=== PATIENT | female | born 1995 | race Caucasian/White ===

== ENCOUNTER 2018-05-17 14:36 | Emergency (ER) | payer OTHER ==
[~2018-05-17 14:36] MED LIST: Sodium Chloride 0.9% 1000 ML 1,000 ML ONE
[2018-05-17] MEDS ORDERED: FEVERALL 650 MG PR STA (14:42)
[2018-05-17] MEDS ORDERED: Sodium Chloride 0.9% 1000 ML 1,000 ML IV STA ×2 (14:42→15:29)
[2018-05-17 14:52] LABS: A-aADO2 61; ABG HEMOGLOBIN 11.2; ABG POTASSIUM 3.4 (3.5-5.1); ABG SITE RIGHT BRACHIAL; ARTERIAL BLOOD GAS BASE EXCESS -5.2 (-2.0-2.0); ARTERIAL BLOOD GAS FIO2 28 %; ARTERIAL BLOOD GAS PCO2 26 mmHg (35-45); ARTERIAL BLOOD GAS PO2 106 mmHg (75-100); ARTERIAL BLOOD GAS pH 7.44 (7.35-7.45); CARBOXYHEMOGLOBIN 2.4 % THgb (0.0-6.9); HCO3- 17.7 (22-28); HGB O2 SAT 94.6 g/dF (94-100); paO2 pAO1 0.63
[2018-05-17] MEDS ORDERED: FEVERALL 650 MG ONE ×2 (14:52→15:01)
--- NOTE | 2018-05-17 14:52 | ERPHSYRPT ---
- History of Present Illness Time Seen by Provider: 05/17/18 14:40 Historian: patient Exam Limitations: clinical condition Physician History: PATIENT WITH A HISTORY OF OPIATE SUBSTANCE ABUSE COMPLAINS OF FREQUENT EPISODES OF EMESIS X 10 EPISODES DAILY FOR 3 DAYS ASSOCIATED WITH ABDOMINAL PAIN, FEVER, HEADACHE, NECK AND BACK PAIN. DENIES BLURRED VISION, DIARRHEA COUGH OR DIFFICULTY BREATHING. PATIENT HAS BEEN UNABLE TO KEEP DOWN HER SUBLOXONE FOR 2 DAYS DUE TO VOMITING. Timing/Duration: day(s) Activities at Onset: none Quality: sharpness, throbbing Abdominal Pain Onset Location: generalized abdomen Pain Radiation: no radiation Severity of Pain-Max: severe Severity of Pain-Current: severe Modifying Factors: Improves With: nothing Associated Symptoms: back, nausea, neck pain Previous symptoms: no prior history Allergies/Adverse Reactions: No Known Drug Allergies Allergy (Verified 05/17/18 15:05) Home Medications: Buprenorphine HCl/Naloxone HCl [Buprenorphin-Naloxon 8-2 mg Sl] 1 tab PO BID 06/30 [History] - Review of Systems Constitutional: Fever Eyes: No Symptoms Ears, Nose, & Throat: No Symptoms Respiratory: No Symptoms, No Cough, No Dyspnea Cardiac: No Symptoms, No Chest Pain, No Edema, No Syncope Abdominal/Gastrointestinal: Abdominal Pain, Nausea, Vomiting, No Diarrhea Genitourinary Symptoms: No Symptoms, No Dysuria Musculoskeletal: Arthralgias, No Back Pain, No Neck Pain Skin: No Rash Neurological: No Dizziness, No Focal Weakness, No Sensory Changes Psychological: No Symptoms Endocrine: No Symptoms All Other Systems: Reviewed and Negative - Female History Hx Now: (UNKNOW) - Nursing Vital Signs Nursing Vital Signs: Initial Vital Signs Temperature 103.6 F 05/17/18 14:40 Pulse Rate 119 H 05/17/18 14:40 Blood Pressure 106/64 05/17/18 14:40 O2 Sat by Pulse Oximetry 100 05/17/18 14:40 Pain Scale Pain Intensity 10 - Physical Exam General Appearance: moderate distress, other (ALERT AND ORIENTED X 3) Eye Exam: PERRL/EOMI Ears, Nose, Throat Exam: normal ENT inspection, moist mucous membranes Neck Exam: normal inspection, meningismus, Brudzinski, midline tenderness Respiratory Exam: normal breath sounds Cardiovascular Exam: regular rate/rhythm, normal heart sounds, tachycardia Gastrointestinal/Abdomen Exam: soft, normal bowel sounds, tenderness (BILATERAL LOWER QUAD TENDERNESS, SUPRAPUBIC TENDERNESS) Back Exam: normal inspection, CVA tenderness (BILATERAL CVA TENDERNESS) Extremity Exam: normal inspection Neurologic Exam: oriented x 3, other (APPEARS LETHARGIC, ANSWERS APPROPRIATELY) Skin Exam: normal color SpO2 Interpretation: normal SpO2: 99 O2 Delivery: Room Air - Course EKG Interpreted by Me: RATE, Sinus Rhythm, Sinus Tach, NORMAL AXIS - Radiology Exams Chest X-ray Interpretation: Interpreted by me, Negative, No Infiltrates - CT Exams Head CT Interpretation: Tele-radiologist Report, No/Intracranial Hemorrhag Abdomen/Pelvis CT Interpretation: Tele-radiologist Report (SMALL ASCITES WITH MINIMAL PERIPORTAL LYNETTE IS NONSPECIFIC) Ordered Tests: Active Orders 24 hr Category Date Time Status Cath for Specimen-Straight STAT Care 05/17/18 14:45 Active Catheter-Paris Crowley STAT Care 05/17/18 14:42 Active EKG-ER Only STAT Care 05/17/18 14:42 Active IV Insertion STAT Care 05/17/18 14:42 Active ABDOMEN AND PELVIS W CONTRAST [CT] Stat Exams 05/17/18 14:44 Completed CHEST 1 VIEW (PORTABLE) Stat Exams 05/17/18 14:43 Completed HEAD WITHOUT CONTRAST [CT] Stat Exams 05/17/18 14:47 Completed ABG [ARTERIAL BLOOD GASES] Stat Lab 05/17/18 14:51 Completed AMYLASE Stat Lab 05/17/18 14:35 Completed BLOOD CULTURE Stat Lab 05/17/18 14:50 Received BMP Stat Lab 05/17/18 17:05 Completed CBC W DIFF Stat Lab 05/17/18 14:35 Completed CMP Stat Lab 05/17/18 14:35 Completed CSF GLUCOSE Stat Lab 05/17/18 17:45 Completed CSF PROTEIN Stat Lab 05/17/18 17:45 Completed CSF, CELL COUNT Stat Lab 05/17/18 17:45 Completed CULTURE,CSF Stat Lab 05/17/18 17:45 Received CULTURE,URINE Stat Lab 05/17/18 14:55 Received HCG,QUALITATIVE URINE Stat Lab 05/17/18 14:55 Completed LIPASE Stat Lab 05/17/18 14:35 Completed Lactic Acid Stat Lab 05/17/18 14:42 Completed Lactic Acid Stat Lab 05/17/18 16:50 Completed Lactic Acid Stat Lab 05/17/18 19:07 Ordered Manual Differential NC Stat Lab 05/17/18 14:35 Completed TROPONIN Q3H Lab 05/17/18 14:35 Completed TROPONIN Q3H Lab 05/17/18 17:30 Completed TROPONIN Q3H Lab 05/17/18 23:45 Ordered UA W/RFX UR CULTURE Stat Lab 05/17/18 14:55 Completed Urine Triage Profile Stat Lab 05/17/18 14:55 Completed Medication Summary Discontinued Medications Generic Name Dose Route Start Last Admin Trade Name Savanah PRN Reason Stop Dose Admin Acetaminophen 650 mg 05/17/18 14:42 05/17/18 14:55 Feverall 650 Mg MS 05/17/18 14:43 650 mg STAT STA Administration Acetaminophen Confirm 05/17/18 14:52 Feverall 650 Mg Administered 05/17/18 14:53 Dose 650 mg .ROUTE .STK-MED ONE Acetaminophen Confirm 05/17/18 15:01 Feverall 650 Mg Administered 05/17/18 15:02 Dose 650 mg .ROUTE .STK-MED ONE Acetaminophen 650 mg 05/17/18 17:36 05/17/18 17:38 Tylenol 325 Mg PO 05/17/18 17:37 650 mg STAT STA Administration Acetaminophen Confirm 05/17/18 17:38 Tylenol 325 Mg Administered 05/17/18 17:39 Dose 650 mg .ROUTE .STK-MED ONE Fentanyl Citrate 50 mcg 05/17/18 17:37 05/17/18 18:37 Sublimaze 100 Mcg/2 Ml IV 05/17/18 17:38 Not Given STAT ONE Hydromorphone HCl 1 mg 05/17/18 15:24 05/17/18 15:28 Hydromorphone 1 Mg/Ml Ampule IV 05/17/18 15:25 1 mg STAT ONE Administration Hydromorphone HCl Confirm 05/17/18 15:26 Hydromorphone 1 Mg/Ml Ampule Administered 05/17/18 15:27 Dose 1 mg .ROUTE .STK-MED ONE Sodium Chloride 1,000 mls @ 999 mls/hr 05/17/18 14:42 05/17/18 15:12 Sodium Chloride 0.9% 1000 Ml IV 05/17/18 15:42 Infused .Q1H1M STA Infusion Sodium Chloride Confirm 05/17/18 15:01 Sodium Chloride 0.9% 1000 Ml Administered 05/17/18 15:02 Dose 1,000 mls @ ud .ROUTE .STK-MED ONE Sodium Chloride 1,000 mls @ 999 mls/hr 05/17/18 15:29 05/17/18 15:32 Sodium Chloride 0.9% 1000 Ml IV 05/17/18 16:29 Infused .Q1H1M STA Infusion Ceftriaxone Sodium/Dextrose 2 g in 50 mls @ 100 mls/hr 05/17/18 15:31 17:37 Rocephin 2 Gm-D5w 50ml Bag IV 05/17/18 16:00 Infused STAT STA Infusion Sodium Chloride Confirm 05/17/18 15:28 Sodium Chloride 0.9% 1000 Ml Administered 05/17/18 15:29 Dose 1,000 mls @ ud .ROUTE .STK-MED ONE Ceftriaxone Sodium/Dextrose Confirm 05/17/18 15:35 Rocephin 1 Gm-D5w 50 Ml Bag Administered 05/17/18 15:36 Dose 1 g in 50 mls @ ud IV .STK-MED ONE Ceftriaxone Sodium/Dextrose Confirm 05/17/18 16:19 Rocephin 1 Gm-D5w 50 Ml Bag Administered 05/17/18 16:20 Dose 1 g in 50 mls @ ud IV .STK-MED ONE Sodium Chloride Confirm 05/17/18 17:08 Sodium Chloride 0.9% 1000 Ml Administered 05/17/18 17:09 Dose 1,000 mls @ ud .ROUTE .STK-MED ONE Norepinephrine 4,000 mcg/ 504 mls @ 7.56 mls/hr 05/17/18 17:54 05/17/18 18:05 Dextrose IV 06/16/18 17:53 1 mcg/min .Q24H PRN 7.56 mls/hr SEVERE HYPOTENSION Administration Protocol 1 MCG/MIN Sodium Chloride 1,000 mls @ 100 mls/hr 05/17/18 18:15 05/17/18 18:10 Sodium Chloride 0.9% 1000 Ml IV 06/16/18 18:14 100 mls/hr .Q10H MELISSA Administration Sodium Chloride Confirm 05/17/18 18:09 Sodium Chloride 0.9% 1000 Ml Administered 05/17/18 18:10 Dose 1,000 mls @ ud .ROUTE .STK-MED ONE Ibuprofen 600 mg 05/17/18 16:01 05/17/18 16:15 Motrin 600 Mg PO 05/17/18 16:02 600 mg STAT ONE Administration Ibuprofen Confirm 05/17/18 16:08 Motrin 600 Mg Administered 05/17/18 16:09 Dose 600 mg .ROUTE .STK-MED ONE Lidocaine HCl Confirm 05/17/18 17:18 Xylocaine 2% Hcl 20 Ml Mdv Administered 05/17/18 17:19 Dose 1 ml .ROUTE .STK-MED ONE Lab/Rad Data: Laboratory Result Diagrams 05/17/18 14:35 05/17/18 17:05 Laboratory Results 05/17/18 05/17/18 05/17/18 Range/Units 17:45 17:45 17:30 WBC (4.0-10.5) K/mm3 RBC (4.1-5.4) M/mm3 Hgb (12.0-16.0) gm/dl Hct (35-47) % MCV (78-100) fl MCH (26-32) pg MCHC (32-36) g/dl RDW (11.5-14.0) % Plt Count (150-450) K/mm3 MPV (6-9.5) fl Segmented Neutrophils (36.0-66.0) % Band Neutrophils (0.0-2.0) % Lymphocytes (Manual) (24-44) % Monocytes (Manual) (0.0-12.0) % Eosinophils (Manual) (0.00-3.0) % Metamyelocytes % Platelet Estimate (NORMAL) RBC Morphology Poikilocytosis Anisocytosis Schistocytes Puncture Site pCO2 (35-45) mmHg pO2 (75-100) mmHg Base Excess (-2.0-2.0) O2 Saturation (94-100) g/dF ABG pH (7.35-7.45) ABG HCO3 (22-28) ABG O2 Sat (Measured) (95-100) % [place] Test A-a Gradient a/A Ratio Hemoglobin Carboxyhemoglobin (0.0-6.9) % THgb Methemoglobin (1.4-1.5) % Temperature C POC O2 Flow Rate % Sodium (137-145) mmol/L Potassium (3.5-5.1) mmol/L Chloride (98-107) mmol/L Carbon Dioxide (22-30) mmol/L Anion Gap (5-15) MEQ/L BUN (7-17) mg/dL Creatinine (0.52-1.04) mg/dL Estimated GFR ML/MIN Glucose (74-106) mg/dL Lactic Acid (0.4-2.0) Calcium (8.4-10.2) mg/dL Total Bilirubin (0.2-1.3) mg/dL AST (14-36) U/L ALT (0-35) U/L Alkaline Phosphatase (38-126) U/L Troponin I < 0.012 (0.000-0.034) ng/mL Serum Total Protein (6.3-8.2) g/dL Albumin (3.5-5.0) g/dL Amylase (30-110) U/L Lipase (23-300) U/L Urine Color (YELLOW) Urine Appearance (CLEAR) Urine pH (5-6) Ur Specific [place] (1.005-1.025) Urine Protein (Negative) Urine Ketones (NEGATIVE) Urine Blood (0-5) Stanley/ul Urine Nitrite (NEGATIVE) Urine Bilirubin (NEGATIVE) Urine Urobilinogen (0-1) mg/dL Ur Leukocyte Esterase (NEGATIVE) Urine WBC (Auto) (0-5) /HPF Urine RBC (Auto) (0-2) /HPF U Epithel Cells (Auto) (FEW) /HPF Urine Bacteria (Auto) (NEGATIVE) /HPF Urine Culture Reflexed (NO) Urine Glucose (NEGATIVE) mg/dL Urine HCG, Qual (Negative) CSF Color COLORLESS CSF Clarity CLEAR CSF WBC 2 (0-6) CU. MM CSF RBC 1 (0-2) CU. MM CSF Protein (2) 29 (12-60) mg/dL CSF Neutrophils Cancelled CSF Lymphocytes Cancelled CSF Monocytes Cancelled CSF Glucose 67 (40-70) mg/dL Urine Opiates Level (NEGATIVE) Ur Methadone (NEGATIVE) Urine Barbiturates (NEGATIVE) Ur Phencyclidine (PCP) (NEGATIVE) Urine Amphetamine (NEGATIVE) U Benzodiazepine Level (NEGATIVE) Urine Cocaine (NEGATIVE) Urine Marijuana (THC) (NEGATIVE) Influenza Type A Ag (NEGATIVE) Influenza Type B Ag (NEGATIVE) RSV (PCR) (Negative) Group A Strep Antibody (NEGATIVE) 05/17/18 05/17/18 05/17/18 Range/Units 17:05 16:50 15:20 WBC (4.0-10.5) K/mm3 RBC (4.1-5.4) M/mm3 Hgb (12.0-16.0) gm/dl Hct (35-47) % MCV (78-100) fl MCH (26-32) pg MCHC (32-36) g/dl RDW (11.5-14.0) % Plt Count (150-450) K/mm3 MPV (6-9.5) fl Segmented Neutrophils (36.0-66.0) % Band Neutrophils (0.0-2.0) % Lymphocytes (Manual) (24-44) % Monocytes (Manual) (0.0-12.0) % Eosinophils (Manual) (0.00-3.0) % Metamyelocytes % Platelet Estimate (NORMAL) RBC Morphology Poikilocytosis Anisocytosis Schistocytes Puncture Site pCO2 (35-45) mmHg pO2 (75-100) mmHg Base Excess (-2.0-2.0) O2 Saturation (94-100) g/dF ABG pH (7.35-7.45) ABG HCO3 (22-28) ABG O2 Sat (Measured) (95-100) % [place] Test A-a Gradient a/A Ratio Hemoglobin Carboxyhemoglobin (0.0-6.9) % THgb Methemoglobin (1.4-1.5) % Temperature C POC O2 Flow Rate % Sodium 134 L (137-145) mmol/L Potassium 3.6 (3.5-5.1) mmol/L Chloride 107 (98-107) mmol/L Carbon Dioxide 18 L (22-30) mmol/L Anion Gap 13.0 (5-15) MEQ/L BUN 46 H (7-17) mg/dL Creatinine 2.46 H (0.52-1.04) mg/dL Estimated GFR 25.8 ML/MIN Glucose 107 H (74-106) mg/dL Lactic Acid 2.3 H (0.4-2.0) Calcium 6.6 L (8.4-10.2) mg/dL Total Bilirubin (0.2-1.3) mg/dL AST (14-36) U/L ALT (0-35) U/L Alkaline Phosphatase (38-126) U/L Troponin I (0.000-0.034) ng/mL Serum Total Protein (6.3-8.2) g/dL Albumin (3.5-5.0) g/dL Amylase (30-110) U/L Lipase (23-300) U/L Urine Color (YELLOW) Urine Appearance (CLEAR) Urine pH (5-6) Ur Specific [place] (1.005-1.025) Urine Protein (Negative) Urine Ketones (NEGATIVE) Urine Blood (0-5) Stanley/ul Urine Nitrite (NEGATIVE) Urine Bilirubin (NEGATIVE) Urine Urobilinogen (0-1) mg/dL Ur Leukocyte Esterase (NEGATIVE) Urine WBC (Auto) (0-5) /HPF Urine RBC (Auto) (0-2) /HPF U Epithel Cells (Auto) (FEW) /HPF Urine Bacteria (Auto) (NEGATIVE) /HPF Urine Culture Reflexed (NO) Urine Glucose (NEGATIVE) mg/dL Urine HCG, Qual (Negative) CSF Color CSF Clarity CSF WBC (0-6) CU. MM CSF RBC (0-2) CU. MM CSF Protein (2) (12-60) mg/dL CSF Neutrophils CSF Lymphocytes CSF Monocytes CSF Glucose (40-70) mg/dL Urine Opiates Level (NEGATIVE) Ur Methadone (NEGATIVE) Urine Barbiturates (NEGATIVE) Ur Phencyclidine (PCP) (NEGATIVE) Urine Amphetamine (NEGATIVE) U Benzodiazepine Level (NEGATIVE) Urine Cocaine (NEGATIVE) Urine Marijuana (THC) (NEGATIVE) Influenza Type A Ag NEGATIVE (NEGATIVE) Influenza Type B Ag NEGATIVE (NEGATIVE) RSV (PCR) NEGATIVE (Negative) Group A Strep Antibody (NEGATIVE) 05/17/18 05/17/18 05/17/18 Range/Units 15:10 14:55 14:55 WBC (4.0-10.5) K/mm3 RBC (4.1-5.4) M/mm3 Hgb (12.0-16.0) gm/dl Hct (35-47) % MCV (78-100) fl MCH (26-32) pg MCHC (32-36) g/dl RDW (11.5-14.0) % Plt Count (150-450) K/mm3 MPV (6-9.5) fl Segmented Neutrophils (36.0-66.0) % Band Neutrophils (0.0-2.0) % Lymphocytes (Manual) (24-44) % Monocytes (Manual) (0.0-12.0) % Eosinophils (Manual) (0.00-3.0) % Metamyelocytes % Platelet Estimate (NORMAL) RBC Morphology Poikilocytosis Anisocytosis Schistocytes Puncture Site pCO2 (35-45) mmHg pO2 (75-100) mmHg Base Excess (-2.0-2.0) O2 Saturation (94-100) g/dF ABG pH (7.35-7.45) ABG HCO3 (22-28) ABG O2 Sat (Measured) (95-100) % [place] Test A-a Gradient a/A Ratio Hemoglobin Carboxyhemoglobin (0.0-6.9) % THgb Methemoglobin (1.4-1.5) % Temperature C POC O2 Flow Rate % Sodium (137-145) mmol/L Potassium (3.5-5.1) mmol/L Chloride (98-107) mmol/L Carbon Dioxide (22-30) mmol/L Anion Gap (5-15) MEQ/L BUN (7-17) mg/dL Creatinine (0.52-1.04) mg/dL Estimated GFR ML/MIN Glucose (74-106) mg/dL Lactic Acid (0.4-2.0) Calcium (8.4-10.2) mg/dL Total Bilirubin (0.2-1.3) mg/dL AST (14-36) U/L ALT (0-35) U/L Alkaline Phosphatase (38-126) U/L Troponin I (0.000-0.034) ng/mL Serum Total Protein (6.3-8.2) g/dL Albumin (3.5-5.0) g/dL Amylase (30-110) U/L Lipase (23-300) U/L Urine Color (YELLOW) Urine Appearance (CLEAR) Urine pH (5-6) Ur Specific [place] (1.005-1.025) Urine Protein (Negative) Urine Ketones (NEGATIVE) Urine Blood (0-5) Stanley/ul Urine Nitrite (NEGATIVE) Urine Bilirubin (NEGATIVE) Urine Urobilinogen (0-1) mg/dL Ur Leukocyte Esterase (NEGATIVE) Urine WBC (Auto) (0-5) /HPF Urine RBC (Auto) (0-2) /HPF U Epithel Cells (Auto) (FEW) /HPF Urine Bacteria (Auto) (NEGATIVE) /HPF Urine Culture Reflexed (NO) Urine Glucose (NEGATIVE) mg/dL Urine HCG, Qual NEGATIVE (Negative) CSF Color CSF Clarity CSF WBC (0-6) CU. MM CSF RBC (0-2) CU. MM CSF Protein (2) (12-60) mg/dL CSF Neutrophils CSF Lymphocytes CSF Monocytes CSF Glucose (40-70) mg/dL Urine Opiates Level NEGATIVE (NEGATIVE) Ur Methadone NEGATIVE (NEGATIVE) Urine Barbiturates NEGATIVE (NEGATIVE) Ur Phencyclidine (PCP) NEGATIVE (NEGATIVE) Urine Amphetamine NEGATIVE (NEGATIVE) U Benzodiazepine Level POSITIVE (NEGATIVE) Urine Cocaine NEGATIVE (NEGATIVE) Urine Marijuana (THC) POSITIVE (NEGATIVE) Influenza Type A Ag (NEGATIVE) Influenza Type B Ag (NEGATIVE) RSV (PCR) (Negative) Group A Strep Antibody NEGATIVE (NEGATIVE) 05/17/18 05/17/18 05/17/18 Range/Units 14:55 14:51 14:42 WBC (4.0-10.5) K/mm3 RBC (4.1-5.4) M/mm3 Hgb (12.0-16.0) gm/dl Hct (35-47) % MCV (78-100) fl MCH (26-32) pg MCHC (32-36) g/dl RDW (11.5-14.0) % Plt Count (150-450) K/mm3 MPV (6-9.5) fl Segmented Neutrophils (36.0-66.0) % Band Neutrophils (0.0-2.0) % Lymphocytes (Manual) (24-44) % Monocytes (Manual) (0.0-12.0) % Eosinophils (Manual) (0.00-3.0) % Metamyelocytes % Platelet Estimate (NORMAL) RBC Morphology Poikilocytosis Anisocytosis Schistocytes Puncture Site RIGHT BRACHIAL pCO2 26 L (35-45) mmHg pO2 106 H (75-100) mmHg Base Excess -5.2 L (-2.0-2.0) O2 Saturation 94.6 (94-100) g/dF ABG pH 7.44 (7.35-7.45) ABG HCO3 17.7 L (22-28) ABG O2 Sat (Measured) 99.0 (95-100) % [place] Test NOT APPLICABLE A-a Gradient 61 a/A Ratio 0.63 Hemoglobin 11.2 Carboxyhemoglobin 2.4 (0.0-6.9) % THgb Methemoglobin 2.0 H (1.4-1.5) % Temperature 37.0 C POC O2 Flow Rate 28 % Sodium (137-145) mmol/L Potassium 3.4 L (3.5-5.1) mmol/L Chloride (98-107) mmol/L Carbon Dioxide (22-30) mmol/L Anion Gap (5-15) MEQ/L BUN (7-17) mg/dL Creatinine (0.52-1.04) mg/dL Estimated GFR ML/MIN Glucose (74-106) mg/dL Lactic Acid 2.0 (0.4-2.0) Calcium (8.4-10.2) mg/dL Total Bilirubin (0.2-1.3) mg/dL AST (14-36) U/L ALT (0-35) U/L Alkaline Phosphatase (38-126) U/L Troponin I (0.000-0.034) ng/mL Serum Total Protein (6.3-8.2) g/dL Albumin (3.5-5.0) g/dL Amylase (30-110) U/L Lipase (23-300) U/L Urine Color SAMANTHA (YELLOW) Urine Appearance CLOUDY (CLEAR) Urine pH 5.0 (5-6) Ur Specific [place] 1.018 (1.005-1.025) Urine Protein 100 (Negative) Urine Ketones TRACE (NEGATIVE) Urine Blood SMALL (0-5) Stanley/ul Urine Nitrite NEGATIVE (NEGATIVE) Urine Bilirubin NEGATIVE (NEGATIVE) Urine Urobilinogen 4 (0-1) mg/dL Ur Leukocyte Esterase MODERATE (NEGATIVE) Urine WBC (Auto) 16-25 (0-5) /HPF Urine RBC (Auto) 3-5 (0-2) /HPF U Epithel Cells (Auto) RARE (FEW) /HPF Urine Bacteria (Auto) NONE (NEGATIVE) /HPF Urine Culture Reflexed YES (NO) Urine Glucose NEGATIVE (NEGATIVE) mg/dL Urine HCG, Qual (Negative) CSF Color CSF Clarity CSF WBC (0-6) CU. MM CSF RBC (0-2) CU. MM CSF Protein (2) (12-60) mg/dL CSF Neutrophils CSF Lymphocytes CSF Monocytes CSF Glucose (40-70) mg/dL Urine Opiates Level (NEGATIVE) Ur Methadone (NEGATIVE) Urine Barbiturates (NEGATIVE) Ur Phencyclidine (PCP) (NEGATIVE) Urine Amphetamine (NEGATIVE) U Benzodiazepine Level (NEGATIVE) Urine Cocaine (NEGATIVE) Urine Marijuana (THC) (NEGATIVE) Influenza Type A Ag (NEGATIVE) Influenza Type B Ag (NEGATIVE) RSV (PCR) (Negative) Group A Strep Antibody (NEGATIVE) 05/17/18 05/17/18 05/17/18 Range/Units 14:35 14:35 14:35 WBC 6.7 (4.0-10.5) K/mm3 RBC 3.53 L (4.1-5.4) M/mm3 Hgb 10.6 L (12.0-16.0) gm/dl Hct 31.6 L (35-47) % MCV 89.5 (78-100) fl MCH 30.0 (26-32) pg MCHC 33.5 (32-36) g/dl RDW 14.2 H (11.5-14.0) % Plt Count 41 L (150-450) K/mm3 MPV 12.6 H (6-9.5) fl Segmented Neutrophils 43 (36.0-66.0) % Band Neutrophils 46 H (0.0-2.0) % Lymphocytes (Manual) 3 L (24-44) % Monocytes (Manual) 2 (0.0-12.0) % Eosinophils (Manual) 1 (0.00-3.0) % Metamyelocytes 5 % Platelet Estimate DECREASED (NORMAL) RBC Morphology ABNORMAL Poikilocytosis 1+ Anisocytosis 1+ Schistocytes 1+ Puncture Site pCO2 (35-45) mmHg pO2 (75-100) mmHg Base Excess (-2.0-2.0) O2 Saturation (94-100) g/dF ABG pH (7.35-7.45) ABG HCO3 (22-28) ABG O2 Sat (Measured) (95-100) % [place] Test A-a Gradient a/A Ratio Hemoglobin Carboxyhemoglobin (0.0-6.9) % THgb Methemoglobin (1.4-1.5) % Temperature C POC O2 Flow Rate % Sodium 134 L (137-145) mmol/L Potassium 3.5 (3.5-5.1) mmol/L Chloride 106 (98-107) mmol/L Carbon Dioxide 17 L (22-30) mmol/L Anion Gap 15.4 H (5-15) MEQ/L BUN 49 H (7-17) mg/dL Creatinine 2.82 H (0.52-1.04) mg/dL Estimated GFR 22.1 ML/MIN Glucose 114 H (74-106) mg/dL Lactic Acid (0.4-2.0) Calcium 7.4 L (8.4-10.2) mg/dL Total Bilirubin 1.60 H (0.2-1.3) mg/dL AST 29 (14-36) U/L ALT 23 (0-35) U/L Alkaline Phosphatase 79 (38-126) U/L Troponin I < 0.012 (0.000-0.034) ng/mL Serum Total Protein 5.7 L (6.3-8.2) g/dL Albumin 3.0 L (3.5-5.0) g/dL Amylase < 30 L (30-110) U/L Lipase < 10 L (23-300) U/L Urine Color (YELLOW) Urine Appearance (CLEAR) Urine pH (5-6) Ur Specific [place] (1.005-1.025) Urine Protein (Negative) Urine Ketones (NEGATIVE) Urine Blood (0-5) Stanley/ul Urine Nitrite (NEGATIVE) Urine Bilirubin (NEGATIVE) Urine Urobilinogen (0-1) mg/dL Ur Leukocyte Esterase (NEGATIVE) Urine WBC (Auto) (0-5) /HPF Urine RBC (Auto) (0-2) /HPF U Epithel Cells (Auto) (FEW) /HPF Urine Bacteria (Auto) (NEGATIVE) /HPF Urine Culture Reflexed (NO) Urine Glucose (NEGATIVE) mg/dL Urine HCG, Qual (Negative) CSF Color CSF Clarity CSF WBC (0-6) CU. MM CSF RBC (0-2) CU. MM CSF Protein (2) (12-60) mg/dL CSF Neutrophils CSF Lymphocytes CSF Monocytes CSF Glucose (40-70) mg/dL Urine Opiates Level (NEGATIVE) Ur Methadone (NEGATIVE) Urine Barbiturates (NEGATIVE) Ur Phencyclidine (PCP) (NEGATIVE) Urine Amphetamine (NEGATIVE) U Benzodiazepine Level (NEGATIVE) Urine Cocaine (NEGATIVE) Urine Marijuana (THC) (NEGATIVE) Influenza Type A Ag (NEGATIVE) Influenza Type B Ag (NEGATIVE) RSV (PCR) (Negative) Group A Strep Antibody (NEGATIVE) - Progress Progress: improved Progress Note: 05/17/18 16:01 PLACED ONTO SEPSIS PROTOCOL LACTIC ACID 2.0, ADMINISTERED 3 LITERS NORMAL SALINE OVER 3 HOURS, DILAUDID 1MG IV, TYENOL SUPP 650MG, MOTRIN 600MG ORALLY, BUN-49, CREA-2.82 CBC WBC-6700 U/A WBC-16-25, AFTER 2 SETS OF BLOOD CULTURES ROCEPHIN 2GM IVPB GIVEN 05/17/18 16:05, ADMINISTERED TYLENOL 650MG RECTAL SUPP, MOTRIN 600MG ORALLY, TEMP IMPROVE TO 100.9 05/17/18 19:18 LACTC ACID 2.0 WITH REPEAT 2.3, AFTER 4 LITERS OF NORMAL SALINE ADMINISTERED LEVOPHED FOR SBP 90, TITRATED TO 14MCG/MIN DISCUSSED WITH PATIENT LUMBAR PUNCTURE DUE TO NECK STIFFNESS AND HEADACHE, CONSENT SIGNED AFTER RISK VS BENEFIT DISCUSSED WITH PATIENT, REFUSED LUMBAR PUNCTURE INITIALLY, THEN AGREED, PLACED PATIENT IN LEFT LATERAL DECUBITUS POSITION, UNDER ASEPTIC TECHNIQUE, LOCAL WITH PLAIN 2% 4ML WITH MIDLINE APPROACH AT LEVEL L4-L5 USING 22GM SPINAL NEEDLE X 1, OPENING PRESSURE 27 MMHG, AT 1725, PLACED SUPINE, SPINAL FLUID WBC-2,RBC-1, GLUCOSE 67, PROTEIN 29 AND GRAM STAIN-NEGATIVE Discussed with Dr.: Other (DISCUSSED WITH DR MONDRAGON AT 1910 OF [facility] ER ACCEPTS TRANSFER VIA [facility]) - Departure Time of Disposition: 20:10 Departure Disposition: Transfer Clinical Impression: SEPSIS, URINARY TRACT INFECTION, DEHYDRATION, INTRACTABLE EMESIS Condition: Stable Critical Care Time: Yes Critical Care Time(excluding separately billable procedures): ___ minutes (90) Referrals: DOCTOR,NO FAMILY [Primary Care Provider] -
[2018-05-17] MEDS ORDERED: Sodium Chloride 0.9% 1000 ML 1,000 ML ONE ×4 (15:01→18:09)
[2018-05-17 15:18] LABS: Appearance CLOUDY (CLEAR); Bilirubin NEGATIVE (NEGATIVE); Blood SMALL Ery/ul (0-5); Epithelial Cells RARE /HPF (FEW); Glucose NEGATIVE (NEGATIVE); Ketones TRACE (NEGATIVE); Leukocyte Esterase MODERATE (NEGATIVE); Nitrite NEGATIVE (NEGATIVE); Protein,Urine Dip 100 (Negative); Specific Gravity 1.018 (1.005-1.025); Urobilinogen 4 mg/dL (0-1)
[2018-05-17 15:21] LABS: ALKALINE PHOSPHATASE 79 U/L (38-126); AMYLASE < 30 U/L (30-110); ANION GAP 15.4 MEQ/L (5-15); BLOOD UREA NITROGEN 49 mg/dL (7-17); CHLORIDE 106 mmol/L (98-107); Calcium 7.4 mg/dL (8.4-10.2); Creatinine 1 2.82 mg/dL (0.52-1.04); Glucose 114 mg/dL (74-106); Hematocrit 31.6 % (35-47); Hemoglobin 10.6 gm/dl (12.0-16.0); Mean Cell Volume 89.5 fl (78-100); Mean Corpuscular Hgb Concent. 33.5 g/dl (32-36); Mean Platelet Volume 12.6 fl (6-9.5); Platelet Count 41 K/mm3 (150-450); Potassium 3.5 mmol/L (3.5-5.1); Red Blood Count 3.53 M/mm3 (4.1-5.4); Red Cell Distribution Width 14.2 % (11.5-14.0); SGOT/AST 29 U/L (14-36); SGPT/ALT 23 U/L (0-35); SODIUM 134 mmol/L (137-145); Total Protein 5.7 g/dL (6.3-8.2); White Blood Count 6.7 K/mm3 (4.0-10.5)
[2018-05-17] MEDS ORDERED: Hydromorphone 1 mg/ml Ampule IV ONE (15:24)
[2018-05-17 15:25] LABS: Amphetamine,Urine NEGATIVE (NEGATIVE); Barbiturate,Urine NEGATIVE (NEGATIVE); Benzodiazepine,Urine POSITIVE (NEGATIVE); Cocaine,Urine NEGATIVE (NEGATIVE); Methadone,Urine NEGATIVE (NEGATIVE); Opiate,Urine NEGATIVE (NEGATIVE); PCP,Urine NEGATIVE (NEGATIVE); THC,Urine POSITIVE (NEGATIVE)
[2018-05-17] MEDS ORDERED: Hydromorphone 1 mg/ml Ampule ONE (15:26)
[2018-05-17 15:27] LABS: Carbon Dioxide 17 mmol/L (22-30)
[2018-05-17 15:28] LABS: LIPASE < 10 U/L (23-300)
[2018-05-17] MEDS ORDERED: ROCEPHIN 2 Gm-D5w 50ML BAG** 2 G/50 ML IVPB IV STA (15:31)
[2018-05-17] MEDS ORDERED: ROCEPHIN 1 Gm-D5w 50 ml Bag** 1 G/50 ML IVPB IV ONE ×2 (15:35→16:19)
[2018-05-17] MEDS ORDERED: MOTRIN 600 MG PO ONE (16:01)
[2018-05-17 16:04] LABS: BAND 46 % (0.0-2.0); Eosinophil 1 % (0.00-3.0); Lymphocytes 3 % (24-44); Metamyelocyte 5 %; Monocyte 2 % (0.0-12.0); Neutrophils 43 % (36.0-66.0); Total Cells Counted 100
[2018-05-17 16:06] LABS: ANISOCYTOSIS 1+; Platelet Estimate DECREASED (NORMAL); Poikilocytosis 1+; Schistocytes 1+
[2018-05-17] MEDS ORDERED: MOTRIN 600 MG ONE (16:08)
[2018-05-17 16:12] LABS: INFLUENZA A NEGATIVE (NEGATIVE); INFLUENZA B NEGATIVE (NEGATIVE); RESPIRATORY SYNCTIAL VIRUS NEGATIVE (Negative)
[2018-05-17 17:07] LABS: Lactic Acid 2.3 (0.4-2.0)
[2018-05-17] MEDS ORDERED: XYLOCAINE 2% HCL 20 ML MDV ONE (17:18)
[2018-05-17 17:24] LABS: Calcium 6.6 mg/dL (8.4-10.2); Creatinine 1 2.46 mg/dL (0.52-1.04); Potassium 3.6 mmol/L (3.5-5.1)
[2018-05-17] MEDS ORDERED: TYLENOL 325 MG PO STA (17:36)
[2018-05-17] MEDS ORDERED: SUBLIMAZE 100 MCG/2 ML IV ONE (17:37)
[2018-05-17] MEDS ORDERED: TYLENOL 325 MG ONE (17:38)
[2018-05-17] MEDS ORDERED: LEVOPHED 4 MG/4 ML 4,000 MCG in Dextrose 5%/Water IV Soln. 500 ML 500 ML IV PRN (17:54)
[2018-05-17 17:57] LABS: CSF GLUCOSE 67 mg/dL (40-70); CSF PROTEIN 29 mg/dL (12-60)
[2018-05-17 18:07] LABS: CSF CLARITY CLEAR; CSF COLOR COLORLESS
[2018-05-17] MEDS ORDERED: Sodium Chloride 0.9% 1000 ML 1,000 ML IV SCH (18:15)
[2018-05-17 18:40] LABS: CSF RBCS 1 CU. MM (0-2); CSF WBCS 2 CU. MM (0-6)
[2018-05-17 19:48] VITALS: BP 96/60
--- NOTE | 2018-05-17 20:00 | XRAY ---
Indication: Cough. Comparison: None Portable chest demonstrates normal heart and lungs. Bony thorax intact with minimal double curvature scoliosis.
[2018-05-17 20:01] VITALS: PULSE 77
--- NOTE | 2018-05-17 20:02 | XRAY ---
Indication: Headache. Multiple contiguous axial images obtained through the head without contrast. Comparison: None Images through base of the brain slightly degraded by motion artifact. Ventriculosulcal pattern appears symmetric. No acute intracranial hemorrhage, abnormal extra-axial fluid collection, or mass effect. Fourth ventricle is midline without hydrocephalus. Cooper-white matter differentiation preserved. Bony calvarium intact. Mild mucosal thickening of both ethmoid sinuses. Mastoid air cells are clear. Impression: Mild motion artifact. No acute intracranial abnormalities. Incidental paranasal sinus disease. Comment: Preliminary interpretation was made by [facility]. No critical discrepancy. CTDI 68.65
--- NOTE | 2018-05-17 20:05 | XRAY ---
Indication: Abdomen pain, nausea, vomiting, and elevated temperature. Multiple contiguous axial images obtained through the abdomen and pelvis using 80 cc of Isovue-370 contrast only. Comparison: None Lung bases demonstrates minimal bibasilar dependent atelectasis. No infiltrate or effusion. Heart is not enlarged. Noncontrasted stomach and bowel loops appear nonobstructed. Appendix not seen. Mild diffuse scattered colonic fecal debris throughout. No gallstones but mild gallbladder wall enhancement with small pericholecystic fluid and mild biliary tree prominence, possibly acalculous cholecystitis. Borderline enlarged spleen measuring 12.5 cm. 5 mm nonobstructing left upper renal calculus. Crowley balloon catheter tip in the bladder lumen. Remaining liver, pancreas, spleen, adrenal glands, kidneys, ureters, uterus, and aorta appear unremarkable. No pathological retroperitoneal lymphadenopathy. Osseous structures intact. No ventral or inguinal hernias. Impression: 1. Gallbladder wall enhancement, small pericholecystic fluid, and biliary tree prominence. Rule out acalculous cholecystitis. 2. Fecal stasis without obstruction. 3. Borderline splenomegaly, nonobstructing left renal calculus, and Crowley catheter in situ. Comment: Preliminary interpretation was made by [facility]. No critical discrepancy. CTDI 8.47
[2018-05-17 20:18] VITALS: O2SAT 99
[2018-05-19 16:41] LABS: Slide Review 1 YES
== END 2018-05-17 20:10 | disposition short-term general hospital (02) ==
LOC: ED 14:36
DX: A41.9 Sepsis, unspecified organism (principal); N39.0 Urinary tract infection, site not specified; E86.0 Dehydration; R11.10 Vomiting, unspecified; R18.8 Other ascites; R50.9 Fever, unspecified; R00.0 Tachycardia, unspecified; F11.10 Opioid abuse, uncomplicated; R10.9 Unspecified abdominal pain; R51 Headache; M54.2 Cervicalgia; M54.9 Dorsalgia, unspecified; Z79.899 Other long term (current) drug therapy
CPT/HCPCS: 51702; 62270; 70450; 74177; 80048; 80053; 80307; 81001; 82150; 82375; 82803; 82945; 83605; 83690; 84157; 84484; 84703; 85025; 87040; 87070; 87086; 87631; 87651; 89050; 93005; 96360; 96361; 96365; 96367; 96372; 96374; 99291; P9612; 36415; 36600; 71045; 99285; J0696; J1170; A9270-GY